=== PATIENT | male | born 1945 | race Two or more races ===

== ENCOUNTER 2017-05-10 07:06 | Outpatient (CLI) | payer OTHER ==
[~2017-05-10 07:06] MED LIST: BICARSIM FORTE125 MG PO; LEVSIN/SL0.125 MG SL
== END 2017-05-10 07:09 | disposition home or self-care (01) ==
LOC: SONOGRAMA 07:06
DX: E04.2 Nontoxic multinodular goiter (principal)

== ENCOUNTER 2020-07-15 08:23 | Outpatient (CLI) | payer OTHER | END 2020-07-15 08:42 | disposition home or self-care (01) | LOC: RX STUDY 08:23 | PROVIDERS: ATTEND General Practice | DX: K44.9 Diaphragmatic hernia without obstruction or gangrene (principal); K22.70 Barrett's esophagus without dysplasia ==

== ENCOUNTER 2021-01-10 12:49 | Outpatient (CLI) | payer OTHER | END 2021-01-10 13:03 | disposition home or self-care (01) | LOC: RAD 12:49 | PROVIDERS: ATTEND General Practice | DX: M25.512 Pain in left shoulder (principal); S33.9XXA Sprain of unspecified parts of lumbar spine and pelvis, initial encounter; M75.102 Unspecified rotator cuff tear or rupture of left shoulder, not specified as traumatic ==

== ENCOUNTER 2021-10-31 07:13 | Outpatient (CLI) | payer OTHER | END 2021-10-31 07:17 | disposition home or self-care (01) | LOC: RX STUDY 07:13 | PROVIDERS: ATTEND General Practice | DX: K21.9 Gastro-esophageal reflux disease without esophagitis (principal); K22.719 Barrett's esophagus with dysplasia, unspecified ==

== ENCOUNTER 2022-07-31 07:18 | Outpatient (CLI) | payer OTHER | END 2022-07-31 07:20 | disposition home or self-care (01) | LOC: NUCLEAR 07:18 | DX: C95.00 Acute leukemia of unspecified cell type not having achieved remission (principal); C79.51 Secondary malignant neoplasm of bone | CPT/HCPCS: 78306; A9503 ==

== ENCOUNTER 2022-07-31 10:57 | Outpatient (CLI) | payer OTHER | END 2022-07-31 11:00 | disposition home or self-care (01) | LOC: RAD 10:57 | DX: M25.551 Pain in right hip (principal); M25.552 Pain in left hip; M46.1 Sacroiliitis, not elsewhere classified; M54.59 Other low back pain; C61 Malignant neoplasm of prostate; M25.59 Pain in other specified joint ==

== ENCOUNTER 2023-01-14 10:50 | Outpatient (CLI) | payer OTHER | END 2023-01-14 10:57 | disposition home or self-care (01) | LOC: SONOGRAMA 10:50 | PROVIDERS: ATTEND General Practice | DX: K21.9 Gastro-esophageal reflux disease without esophagitis (principal) ==

== ENCOUNTER 2023-12-08 07:17 | Outpatient (CLI) | payer OTHER | END 2023-12-08 07:18 | disposition home or self-care (01) | LOC: NUCLEAR 07:17 | DX: C79.51 Secondary malignant neoplasm of bone (principal) | CPT/HCPCS: 78306; A9503 ==

== ENCOUNTER 2025-01-25 09:00 | Outpatient (CLI) | payer OTHER | END 2025-01-25 09:03 | disposition home or self-care (01) | LOC: SONOGRAMA 09:00 | PROVIDERS: ATTEND Pathology Anatomic Pathology & Clinical Pathology | DX: E04.1 Nontoxic single thyroid nodule (principal) ==